=== PATIENT | female | born 1995 | race Two or more races ===

== ENCOUNTER 2025-06-01 08:51 | Observation (INO) | payer BC, OTHER ==
--- NOTE | 2025-06-01 09:47 | DVH ---
BIOPHYSICAL PROFILE HISTORY: GDMA1 TECHNIQUE: Multiple transabdominal real-time grayscale sonographic images through the gravid uterus of the fetus with duplex Doppler color flow and M-mode spectral analysis FINDINGS: BIOPHYSICAL PROFILE: breathing score: 2 movement score: 2 tone score: 2 Quantitative MARGARET score: 2 (MARGARET: 17.7 Cm.) Total score: 8 The cervix not well visualized. Single live fetus in cephalic presentation. heart rate 115 beats per minute. Anterior placenta without previa or abruption IMPRESSION: Biophysical profile score: 8 heart rate ranges from 111 to 123 beats per minute
[2025-06-01] MEDS ORDERED: PREN-96 PO (10:05)
--- NOTE | 2025-06-02 12:41 | DVHDS2 ---
Physician Discharge Progress N Final Diagnosis: gdm 32wks Operations or Procedures: Operations or Procedures nst reactive reviwed,sono Condition on Discharge: Good Disposition: Home Discharge Instructions: Diet: Consistent carbohydrate Activity: No Restrictions, As Tolerated Medications: na Follow Up Care: Specialist: 1w Discharge Statement: "Patient was advised to return to the ER or call 911 if any headaches, dizziness, shortness of breath, chest pain, abdominal pain, bleeding, fevers, or worsening of medical condition. Patient was counseled about treatment plan, medications, possible side effects, patientverbalized understanding. All questions were answered to the best of my ability. This discharge took greater then 30 minutes in planning, reviewing documentation, counseling the patient, and discussing with other team members." Visit Coding OBGYN Date of Service: Jun 01, 2025 Billing Provider: EKTA DÍAZ DO LOG CHIPPER OPERATOR Common Visit Codes: [id number] OBS CARE (HIGH) LOG CHIPPER OPERATOR Procedure Codes: 15378-28- NON-STRESS TEST EKTA DÍAZ DO Jun 02, 2025 12:41
== END 2025-06-01 10:31 | disposition home or self-care (01) ==
LOC: LDRP 08:51
PROVIDERS: ADMIT Obstetrics & Gynecology; ATTEND Obstetrics & Gynecology
DX: O24.419 Gestational diabetes mellitus in pregnancy, unspecified control (principal); Z3A.32 32 weeks gestation of pregnancy; Z79.899 Other long term (current) drug therapy
CPT/HCPCS: 76818; 81002; 82948; 82962; 94760; G0378; 59025; 76819

== ENCOUNTER 2025-06-08 06:32 | Observation (INO) | payer BC ==
[~2025-06-08] VITALS: Ht 154.9 cm; Wt 69.9 kg
[~2025-06-08 06:32] MED LIST: PREN-96 PO
--- NOTE | 2025-06-08 10:59 | DVH ---
BIOPHYSICAL PROFILE HISTORY: gdma1 TECHNIQUE: Multiple transabdominal real-time grayscale sonographic images through the gravid uterus of the fetus with duplex Doppler color flow and M-mode spectral analysis FINDINGS: BIOPHYSICAL PROFILE: breathing score: 2 movement score: 2 tone score: 2 Quantitative MARGARET score: 2 (MARGARET: 19.2 Cm.) Total score: 8/8 The cervix 3.21 cm and appears closed Single live fetus in cephalic presentation. heart rate 123 beats per minute. Anterior Grade 2 placenta without previa or abruption Single live fetus [id number] Biophysical profile score 8/8 corresponding to an KARTHIKEYAN of 07/21/2025. No other measurements were given IMPRESSION: 1. Biophysical profile score: 8/8. 2. FHR: 123 bpm
--- NOTE | 2025-06-09 14:44 | DVHDS2 ---
Physician Discharge Progress N Final Diagnosis: gdm 33wks Operations or Procedures: Operations or Procedures nst reactive reviwed,sono Condition on Discharge: Good Disposition: Home Discharge Instructions: Diet: Consistent carbohydrate Activity: No Restrictions, As Tolerated Medications: na Follow Up Care: Specialist: 3d Discharge Statement: "Patient was advised to return to the ER or call 911 if any headaches, dizziness, shortness of breath, chest pain, abdominal pain, bleeding, fevers, or worsening of medical condition. Patient was counseled about treatment plan, medications, possible side effects, patientverbalized understanding. All questions were answered to the best of my ability. This discharge took greater then 30 minutes in planning, reviewing documentation, counseling the patient, and discussing with other team members." Visit Coding OBGYN Date of Service: Jun 07, 2025 Billing Provider: EKTA DÍAZ DO DIALYSIS RN Common Visit Codes: [id number] OBS CARE (HIGH) DIALYSIS RN Procedure Codes: 82075-01- NON-STRESS TEST EKTA DÍAZ DO Jun 09, 2025 14:44
== END 2025-06-08 10:44 | disposition home or self-care (01) ==
LOC: UNDOADMOB 08:59 → LDRP 08:59
PROVIDERS: ADMIT Obstetrics & Gynecology; ATTEND Obstetrics & Gynecology
DX: O24.419 Gestational diabetes mellitus in pregnancy, unspecified control (principal); Z3A.33 33 weeks gestation of pregnancy; Z79.899 Other long term (current) drug therapy; Z98.890 Other specified postprocedural states
CPT/HCPCS: 76818; 81002; 82948; 82962; 94760; G0378; 59025; 76819

== ENCOUNTER 2025-06-13 05:50 | Observation (INO) | payer BC ==
--- NOTE | 2025-06-13 11:29 | DVH ---
BIOPHYSICAL PROFILE HISTORY: GDMA1 Comparison Study: US BIOPHYSICAL PROFILE on DOS: 06/08/25, US BIOPHYSICAL PROFILE on DOS: 06/01/25 TECHNIQUE: Multiple real-time grayscale sonographic images through the gravid uterus of the fetus wi th duplex Doppler color flow and M-mode spectral analysis FINDINGS: BIOPHYSICAL PROFILE: breathing score: 2 movement score: 2 tone score: 2 Quantitative MARGARET score: 2 (MARGARET: 20.4 Cm, MVP 6.0 cm.) Total score: 8 The cervix is not visualized Single live fetus in cephalic presentation. heart rate 137 beats per minute. Anterior grade 2 placenta without previa or abruption IMPRESSION: Biophysical profile score: 8
--- NOTE | 2025-06-13 11:33 | DVHDS2 ---
Physician Discharge Progress N Final Diagnosis: testing for GDM, A1 Operations or Procedures: Operations or Procedures 29yo IUP@34.4wks VSS per RN NST reactive per RN BPP 8/8 per RN FKC/PTL/preE precautions reviewed Dr. Lui consulted, agrees with POC. Condition on Discharge: Stable Disposition: Home Discharge Instructions: Diet: Consistent carbohydrate Activity: No Restrictions, As Tolerated Medications: see med list Follow Up Care: Specialist: f/u in 1 wk Discharge Statement: "Patient was advised to return to the ER or call 911 if any headaches, dizziness, shortness of breath, chest pain, abdominal pain, bleeding, fevers, or worsening of medical condition. Patient was counseled about treatment plan, medications, possible side effects, patientverbalized understanding. All questions were answered to the best of my ability. This discharge took greater then 30 minutes in planning, reviewing documentation, counseling the patient, and discussing with other team members." Visit Coding OBGYN Date of Service: Jun 13, 2025 Billing Provider: DYLON HALEY CNM PAPER TWISTER TENDER Common Visit Codes: [id number]-[id number] OBS CARE (HIGH) PAPER TWISTER TENDER Procedure Codes: 49537-60- NON-STRESS TEST DYLON HALEY CNM Jun 13, 2025 11:33
== END 2025-06-13 11:37 | disposition home or self-care (01) ==
LOC: LDRP 09:51 → UNDOADMOB 09:51 → LDRP 10:02
PROVIDERS: ADMIT Obstetrics & Gynecology; ATTEND Obstetrics & Gynecology
DX: O24.419 Gestational diabetes mellitus in pregnancy, unspecified control (principal); Z3A.34 34 weeks gestation of pregnancy; Z79.899 Other long term (current) drug therapy; Z98.890 Other specified postprocedural states
CPT/HCPCS: 76818; 81002; 82948; 82962; 94760; G0378; 59025; 76819

== ENCOUNTER 2025-06-20 06:37 | Observation (INO) | payer BC ==
--- NOTE | 2025-06-20 10:41 | DVH ---
BIOPHYSICAL PROFILE HISTORY: GDMA1 TECHNIQUE: Multiple transabdominal real-time grayscale sonographic images through the gravid uterus of the fetus with duplex Doppler color flow and M-mode spectral analysis FINDINGS: BIOPHYSICAL PROFILE: breathing score: 2 movement score: 2 tone score: 2 Quantitative MARGARET score: 2 (MARGARET: 16.8 Cm.) Total score: 8 The cervix not well visualized. Single live fetus in breech presentation. heart rate 164 beats per minute. Grade 2 anterior placenta without previa or abruption IMPRESSION: Biophysical profile score: 8
--- NOTE | 2025-06-21 15:58 | DVHDS2 ---
Physician Discharge Progress N Final Diagnosis: gdm 35wks Operations or Procedures: Operations or Procedures nst reactive reviwed,sono Condition on Discharge: Good Disposition: Home Discharge Instructions: Diet: See Comment Diet comment: GDMA1 diet Activity: No Restrictions, As Tolerated Medications: na Follow Up Care: Specialist: 2d Discharge Statement: "Patient was advised to return to the ER or call 911 if any headaches, dizziness, shortness of breath, chest pain, abdominal pain, bleeding, fevers, or worsening of medical condition. Patient was counseled about treatment plan, medications, possible side effects, patientverbalized understanding. All questions were answered to the best of my ability. This discharge took greater then 30 minutes in planning, reviewing documentation, counseling the patient, and discussing with other team members." Visit Coding OBGYN Date of Service: Jun 21, 2025 Billing Provider: EKTA DÍAZ DO FLOOR SPACE ALLOCATOR Common Visit Codes: [id number] OBS CARE (HIGH) EKTA DÍAZ DO Jun 21, 2025 15:58
== END 2025-06-20 11:33 | disposition home or self-care (01) ==
LOC: LDRP 09:58
PROVIDERS: ADMIT Obstetrics & Gynecology; ATTEND Obstetrics & Gynecology
DX: O24.419 Gestational diabetes mellitus in pregnancy, unspecified control (principal); Z3A.35 35 weeks gestation of pregnancy; Z98.890 Other specified postprocedural states; Z79.899 Other long term (current) drug therapy
CPT/HCPCS: 76818; 81002; 82948; 82962; 94760; G0378; 59025; 76819

== ENCOUNTER 2025-06-27 06:02 | Observation (INO) | payer BC ==
--- NOTE | 2025-06-27 11:09 | DVH ---
BIOPHYSICAL PROFILE HISTORY: GDMA1 TECHNIQUE: Multiple transabdominal real-time grayscale sonographic images through the gravid uterus of the fetus with duplex Doppler color flow and M-mode spectral analysis FINDINGS: BIOPHYSICAL PROFILE: breathing score: 2 movement score: 2 tone score: 2 Quantitative MARGARET score: 2 (MARGARET: 25.8 Cm.) Total score: 8 The cervix not well visualized. Single live fetus in cephalic presentation. heart rate 148 beats per minute. Grade 2 anterior placenta without previa or abruption IMPRESSION: Biophysical profile score: 8 MARGARET: 25.8 cm
--- NOTE | 2025-06-27 11:18 | DVHDS2 ---
Physician Discharge Progress N Final Diagnosis: testing for GDM, A1 and polyhydramnios Operations or Procedures: Operations or Procedures 29yo IUP@36.4wks VSS per RN NST reactive per RN FKC/PTL/preE Precautions reviewed Dr. Lui consulted, agrees with POC. Other Interventions Other Interventions [place] [address] Ph: [phone] DIAGNOSTIC IMAGING Diagnostic Imaging Report : [id number] Signed PATIENT: NNAMDI MCGEE ACCT: [id number] UNIT: [id number] : 1995 LOC: [facility] ROOM / BED: [facility] / A AGE / SEX: 29 / F ADM STATUS: ADM IN SERVICE 6 ORDERING PHYSICIAN: DYLON HALEY CNM PROCEDURE(s): BPP - BIOPHYSICAL PROFILE REASON: GDMA1 ORDER NUMBER(s): [id number], ACCESSION NUMBER(s): [id number] BIOPHYSICAL PROFILE HISTORY: GDMA1 TECHNIQUE: Multiple transabdominal real-time grayscale sonographic images through the gravid uterus of the fetus with duplex Doppler color flow and M-mode spectral analysis FINDINGS: BIOPHYSICAL PROFILE: breathing score: 2 movement score: 2 tone score: 2 Quantitative MARGARET score: 2 (MARGARET: 25.8 Cm.) Total score: 8 The cervix not well visualized. Single live fetus in cephalic presentation. heart rate 148 beats per minute. Grade 2 anterior placenta without previa or abruption IMPRESSION: Biophysical profile score: 8 MARGARET: 25.8 cm ATED BY: SINDY HUGHES MD DICTATED DATE/TIME: 06/27/251105 SIGNED BY: SINDY HUGHES MD SIGNED DATE/TIME: 06/27/251105 CC: Condition on Discharge: Stable Disposition: Home Discharge Instructions: Diet: Consistent carbohydrate Activity: No Restrictions, As Tolerated Medications: see med list Follow Up Care: Specialist: f/u in 3 days Discharge Statement: "Patient was advised to return to the ER or call 911 if any headaches, dizziness, shortness of breath, chest pain, abdominal pain, bleeding, fevers, or worsening of medical condition. Patient was counseled about treatment plan, medications, possible side effects, patientverbalized understanding. All questions were answered to the best of my ability. This discharge took greater then 30 minutes in planning, reviewing documentation, counseling the patient, and discussing with other team members." Visit Coding OBGYN Date of Service: Jun 27, 2025 Billing Provider: DYLON HALEY CNM SMART ENERGY SPECIALIST Common Visit Codes: [id number] OBS CARE (HIGH) SMART ENERGY SPECIALIST Procedure Codes: 15341-97- NON-STRESS TEST DYLON HALEY CNM Jun 27, 2025 11:18
== END 2025-06-27 11:31 | disposition home or self-care (01) ==
LOC: LDRP 09:52
PROVIDERS: ADMIT Obstetrics & Gynecology; ATTEND Obstetrics & Gynecology
DX: O40.3XX0 Polyhydramnios, third trimester, not applicable or unspecified (principal); O24.419 Gestational diabetes mellitus in pregnancy, unspecified control; Z3A.36 36 weeks gestation of pregnancy; Z79.899 Other long term (current) drug therapy
CPT/HCPCS: 76818; 81002; 82948; 82962; 94760; G0378; 76819

== ENCOUNTER 2025-06-30 09:00 | Observation (INO) | payer BC ==
--- NOTE | 2025-06-30 09:17 | DVHDS2 ---
Physician Discharge Progress N Final Diagnosis: gdm 37wks Operations or Procedures: Operations or Procedures nst reactive reviwed,sono Condition on Discharge: Good Disposition: Home Discharge Instructions: Diet: Consistent carbohydrate Activity: No Restrictions, As Tolerated Medications: na Follow Up Care: Specialist: 3d Discharge Statement: "Patient was advised to return to the ER or call 911 if any headaches, dizziness, shortness of breath, chest pain, abdominal pain, bleeding, fevers, or worsening of medical condition. Patient was counseled about treatment plan, medications, possible side effects, patientverbalized understanding. All questions were answered to the best of my ability. This discharge took greater then 30 minutes in planning, reviewing documentation, counseling the patient, and discussing with other team members." Visit Coding OBGYN Date of Service: Jun 30, 2025 Billing Provider: EKTA DÍAZ DO TWISTING FRAME OPERATOR Common Visit Codes: 05523-[id number] INP/OBS CARE (HIGH) TWISTING FRAME OPERATOR Procedure Codes: 40751-31- NON-STRESS TEST EKTA DÍAZ DO Jun 30, 2025 09:17
--- NOTE | 2025-06-30 10:17 | DVH ---
BIOPHYSICAL PROFILE HISTORY: GDMA1/Poly TECHNIQUE: Multiple transabdominal real-time grayscale sonographic images through the gravid uterus of the fetus with duplex Doppler color flow and M-mode spectral analysis FINDINGS: BIOPHYSICAL PROFILE: breathing score: 2 movement score: 2 tone score: 2 Quantitative MARGARET score: 2 (MARGARET: 21.4 Cm.) Total score: 8 The cervix not well visualized. Single live fetus in cephalic presentation. heart rate 138 beats per minute. Grade 2 anterior placenta without previa or abruption IMPRESSION: Biophysical profile score: 8
== END 2025-06-30 10:24 | disposition home or self-care (01) ==
LOC: LDRP 09:00
PROVIDERS: ADMIT Obstetrics & Gynecology; ATTEND Obstetrics & Gynecology
DX: O24.419 Gestational diabetes mellitus in pregnancy, unspecified control (principal); Z3A.37 37 weeks gestation of pregnancy; Z98.890 Other specified postprocedural states; Z79.899 Other long term (current) drug therapy
CPT/HCPCS: 59025; 76819; 81002; 82948; 82962; 94760; G0378; 76818

== ENCOUNTER 2025-07-04 05:54 | Observation (INO) | payer BC ==
--- NOTE | 2025-07-04 10:49 | DVH ---
BIOPHYSICAL PROFILE HISTORY: GDMA1 POLY Comparison Study: US BIOPHYSICAL PROFILE on DOS: 06/30/25, US BIOPHYSICAL PROFILE on DOS: 06/27/25, US BIOPHYSICAL PROFILE on DOS: 06/20/25, US BIOPHYSICAL PROFILE on DOS: 06/13/25, US BIOPHYSICAL PROFILE on DOS: 06/08/25 TECHNIQUE: Multiple real-time grayscale sonographic images through the gravid uterus of the fetus with duplex Doppler color flow and M-mode spectral analysis FINDINGS: BIOPHYSICAL PROFILE: breathing score: 2 movement score: 2 tone score: 2 Quantitative MARGARET score: 2 (MARGARET: 16.32 Cm.) Total score: 8 The cervix is not visualized Single live fetus in cephalic presentation. heart rate 148 beats per minute. Grade 2, anterior placenta without previa or abruption IMPRESSION: Biophysical profile score: 8
--- NOTE | 2025-07-04 11:31 | DVHDS2 ---
Physician Discharge Progress N Final Diagnosis: testing for GDM, A1 Operations or Procedures: Operations or Procedures 29yo IUP@37.4wks VSS per RN NST reactive per RN FKC/preE/Labor precautions reviewed Condition on Discharge: Stable Disposition: Home Discharge Instructions: Diet: Regular Activity: No Restrictions, As Tolerated Medications: see med list Follow Up Care: Specialist: f/u in 1wk Discharge Statement: "Patient was advised to return to the ER or call 911 if any headaches, di zziness, shortness of breath, chest pain, abdominal pain, bleeding, fevers, or worsening of medical condition. Patient was counseled about treatment plan, medications, possible side effects, patientverbalized understanding. All questions were answered to the best of my ability. This discharge took greater then 30 minutes in planning, reviewing documentation, counseling the patient, and discussing with other team members." Visit Coding OBGYN Date of Service: Jul 04, 2025 Billing Provider: DYLON HALEY CNM BLOCK INSPECTOR Common Visit Codes: [id number] OBS CARE (HIGH) BLOCK INSPECTOR Procedure Codes: 42414-41- NON-STRESS TEST DYLON HALEY CNM Jul 04, 2025 11:31
== END 2025-07-04 11:23 | disposition home or self-care (01) ==
LOC: LDRP 09:53 → UNDOADMOB 09:53 → LDRP 10:10 → UNDODISOB 11:23
PROVIDERS: ADMIT Obstetrics & Gynecology; ATTEND Obstetrics & Gynecology
DX: O24.419 Gestational diabetes mellitus in pregnancy, unspecified control (principal); O42.913 Preterm premature rupture of membranes, unspecified as to length of time between rupture and onset of labor, third trimester; Z3A.37 37 weeks gestation of pregnancy; Z98.890 Other specified postprocedural states
CPT/HCPCS: 76818; 81002; 82948; G0378; 59025; 76819

== ENCOUNTER 2025-07-10 00:44 | Observation (INO) | payer BC ==
--- NOTE | 2025-07-10 10:54 | DVH ---
BIOPHYSICAL PROFILE HISTORY: GDMA2 TECHNIQUE: Multiple transabdominal real-time grayscale sonographic images through the gravid uterus of the fetus with duplex Doppler color flow and M-mode spectral analysis FINDINGS: BIOPHYSICAL PROFILE: breathing score: 2 movement score: 2 tone score: 2 Quantitative MARGARET score: 2 (MARGARET: 14.4 Cm.) Total score: 8 The cervix not well visualized. Single live fetus in cephalic presentation. heart rate 129 beats per minute. Grade 2 anterior placenta without previa or abruption IMPRESSION: Biophysical profile score: 8
--- NOTE | 2025-07-11 01:05 | DVHDS2 ---
Physician Discharge Progress N Final Diagnosis: gdm 30wks Operations or Procedures: Operations or Procedures nst reactive reviwed,sono Condition on Discharge: Good Disposition: Home Discharge Instructions: Diet: Consistent carbohydrate Activity: No Restrictions, As Tolerated Medications: na Follow Up Care: Specialist: 2d Discharge Statement: "Patient was advised to return to the ER or call 911 if any headaches, dizziness, shortness of breath, chest pain, abdominal pain, bleeding, fevers, or worsening of medical condition. Patient was counseled about treatment plan, medications, possible side effects, patientverbalized understanding. All questions were answered to the best of my ability. This discharge took greater then 30 minutes in planning, reviewing documentation, counseling the patient, and discussing with other team members." Visit Coding OBGYN Date of Service: Jul 10, 2025 Billing Provider: EKTA DÍAZ DO ENTRY LEVEL BUYER Common Visit Codes: 59914-[id number] OBS CARE (HIGH) ENTRY LEVEL BUYER Procedure Codes: 42212-98- NON-STRESS TEST EKTA DÍAZ DO Jul 11, 2025 01:05
== END 2025-07-10 10:40 | disposition home or self-care (01) ==
LOC: LDRP 09:02
PROVIDERS: ADMIT Obstetrics & Gynecology; ATTEND Obstetrics & Gynecology
DX: O24.419 Gestational diabetes mellitus in pregnancy, unspecified control (principal); Z3A.30 30 weeks gestation of pregnancy; Z98.890 Other specified postprocedural states
CPT/HCPCS: 76818; 81002; 82948; 82962; 94760; G0378; 59025; 76819

== ENCOUNTER 2025-07-18 08:54 | Observation (INO) | payer BC ==
--- NOTE | 2025-07-18 09:58 | DVH ---
BIOPHYSICAL PROFILE HISTORY: GDMA1 TECHNIQUE: Multiple transabdominal real-time grayscale sonographic images through the gravid uterus of the fetus with duplex Doppler color flow and M-mode spectral analysis FINDINGS: BIOPHYSICAL PROFILE: breathing score: 2 movement score: 2 tone score: 2 Quantitative MARGARET score: 2 (MARGARET: 9.8 Cm.) Total score: 8/8 The cervix is not visualized. Single live fetus in cephalic presentation. heart rate 145 beats per minute. Grade 2 anterior placenta without previa or abruption. IMPRESSION: 1. Biophysical profile score: 8/
--- NOTE | 2025-07-18 14:27 | DVHDS2 ---
Physician Discharge Progress N Final Diagnosis: testing for GDM, A1 Operations or Procedures: Operations or Procedures 29yo IUP@39.4wks VSS NST reactive FKC/PTL/PreE precautions reviewed. Dr. Lui consulted, agrees with POC. Other Interventions Other Interventions [address] [address] Ph: [phone] DIAGNOSTIC IMAGING Diagnostic Imaging Report : [id number] Signed PATIENT: NNAMDI MCGEE ACCT: [id number] UNIT: [id number] : 1995 LOC: [facility] ROOM / BED: TRIAGE2 / A AGE / SEX: 29 / F ADM STATUS: ADM IN SERVICE 7 ORDERING PHYSICIAN: DYLON HALEY CNM PROCEDURE(s): BPP - BIOPHYSICAL PROFILE REASON: GDMA1 ORDER NUMBER(s): [id number], ACCESSION NUMBER(s): [id number] BIOPHYSICAL PROFILE HISTORY: GDMA1 TECHNIQUE: Multiple transabdominal real-time grayscale sonographic images through the gravid uterus of the fetus with duplex Doppler color flow and M-mode spectral analysis FINDINGS: BIOPHYSICAL PROFILE: breathing score: 2 movement score: 2 tone score: 2 Quantitative MARGARET score: 2 (MARGARET: 9.8 Cm.) Total score: 8/8 The cervix is not visualized. Single live fetus in cephalic presentation. heart rate 145 beats per minut e. Grade 2 anterior placenta without previa or abruption. IMPRESSION: 1. Biophysical profile score: 8/ ATED BY: NIKHIL WETZEL MD DICTATED DATE/TIME: 07/18/25955 SIGNED BY: NIKHIL WETZEL MD SIGNED DATE/TIME: 07/18/25955 CC: Condition on Discharge: Stable Disposition: Home Discharge Instructions: Diet: Consistent carbohydrate Activity: Light activity Medications: see med list Follow Up Care: Specialist: f/u in 2 days Discharge Statement: "Patient was advised to return to the ER or call 911 if any headaches, dizziness, shortness of breath, chest pain, abdominal pain, bleeding, fevers, or worsening of medical condition. Patient was counseled about treatment plan, medications, possible side effects, patientverbalized understanding. All questions were answered to the best of my ability. This discharge took greater then 30 minutes in planning, reviewing documentation, counseling the patient, and discussing with other team members." Visit Coding OBGYN Date of Service: Jul 18, 2025 Billing Provider: DYLON HALEY CNM COMMUNICATIONS TOWER CLIMBER Common Visit Codes: [id number] OBS CARE (HIGH) COMMUNICATIONS TOWER CLIMBER Procedure Codes: 19994-56- NON-STRESS TEST DYLON HALEY CNM Jul 18, 2025 14:27
== END 2025-07-18 10:46 | disposition home or self-care (01) ==
LOC: LDRP 08:54 → UNDOADMOB 08:54 → LDRP 08:59
PROVIDERS: ADMIT Obstetrics & Gynecology; ATTEND Obstetrics & Gynecology
DX: O24.419 Gestational diabetes mellitus in pregnancy, unspecified control (principal); Z3A.39 39 weeks gestation of pregnancy; Z98.890 Other specified postprocedural states
CPT/HCPCS: 76818; 81002; 82948; 82962; 94760; A4649; G0378; 76819

== ENCOUNTER 2025-07-21 06:27 | Observation (INO) | payer BC ==
--- NOTE | 2025-07-21 15:35 | DVH ---
CLINICAL HISTORY: Gestational diabetes. COMPARISON: US BIOPHYSICAL PROFILE on DOS: 07/18/25, US BIOPHYSICAL PROFILE on DOS: 07/10/25, US BIOPHYSICAL PROFILE on DOS: 07/04/25 TECHNIQUE: biophysical profile was performed. Transabdominal sonographic images of the fetus were obtained. FINDINGS: The fetus is in cephalic position. heart rate measures 156 BPM. Amniotic fluid index measures 18.5 cm. The placenta is anterior in position without visualized evidence of previa or abruption. BPP profile is an overall score of 8/8, with 2/2 points for breathing, with at least one episode of breathing over a 30 second duration during a 30 minute observation, 2/2 points for movements, with 3 or more discrete body or limb movements, 2/2 points for tone, with one or more episodes of extremity extension with return to flexion, or opening and closing of hand, and 2/2 points for amniotic fluid, with at least 1 pocket of amniotic fluid that measures 2 cm in 2 perpendicular planes. IMPRESSION: BPP score of 8/8.
--- NOTE | 2025-07-21 17:46 | DVHDS2 ---
Physician Discharge Progress N Final Diagnosis: GDM Operations or Procedures: Operations or Procedures Encounter for surveillance Commentary: Commentary PATIENT: NNAMDI MCGEE ACCT: [id number] UNIT: [id number] : 1995 LOC: [facility] ROOM / BED: TRIAGE2 / A AGE / SEX: 29 / F ADM STATUS: ADM IN SERVICE 1412 ORDERING PHYSICIAN: MARCO A PALMER DO PROCEDURE(s): BPP - BIOPHYSICAL PROFILE REASON: GDMA1 ORDER NUMBER(s): [id number], ACCESSION NUMBER(s): [id number] CLINICAL HISTORY: Gestational diabetes. COMPARISON: US BIOPHYSICAL PROFILE on DOS: 07/18/25, US BIOPHYSICAL PROFILE on DOS: 07/10/25, US BIOPHYSICAL PROFILE on DOS: 07/04/25 TECHNIQUE: biophysical profile was performed. Transabdominal sonographic images of the fetus were obtained. FINDINGS: The fetus is in cephalic position. heart rate measures 156 BPM. Amniotic fluid index measures 18.5 cm. The placenta is anterior in position without visualized evidence of previa or abruption. BPP profile is an overall score of 8/8, with 2/2 points for breathing, with at least one episode of breathing over a 30 second duration during a 30 minute observation, 2/2 points for movements, with 3 or more discrete body or limb movements, 2/2 points for tone, with one or more episodes of extremity extension with return to flexion, or opening and closing of hand, and 2/2 points for amniotic fluid, with at least 1 pocket of amniotic fluid that measures 2 cm in 2 perpendicular planes. IMPRESSION: BPP score of 8/8. ATED BY: RENETTA CARDONA DO DICTATED DATE/TIME: 07/21/25 1533 Condition on Discharge: Stable Disposition: Home Discharge Instructions: Diet: Consistent carbohydrate Activity: No Restrictions, As Tolerated Follow Up/Referral: as scheduled Medications: NA Follow Up Care: Discharge Statement: "Patient was advised to return to the ER or call 911 if any headaches, d izziness, shortness of breath, chest pain, abdominal pain, bleeding, fevers, or worsening of medical condition. Patient was counseled about treatment plan, medications, possible side effects, patientverbalized understanding. All questions were answered to the best of my ability. This discharge took greater then 30 minutes in planning, reviewing documentation, counseling the patient, and discussing with other team members." Visit Coding OBGYN Date of Service: Jul 21, 2025 Billing Provider: MARCO A PALMER DO JUNK DEALER Common Visit Codes: [id number] INP/OBS CARE(HIGH) MARCO A PALMER DO Jul 21, 2025 17:46
== END 2025-07-21 15:25 | disposition home or self-care (01) ==
LOC: LDRP 13:58
PROVIDERS: ADMIT Obstetrics & Gynecology; ATTEND Obstetrics & Gynecology
DX: O24.419 Gestational diabetes mellitus in pregnancy, unspecified control (principal); Z3A.40 40 weeks gestation of pregnancy; Z98.890 Other specified postprocedural states
CPT/HCPCS: 76818; 81002; 82948; 82962; 94760; A4649; G0378; 59025; 76819

== ENCOUNTER 2025-07-22 03:14 | Inpatient (IN) | payer BC ==
[~2025-07-22] VITALS: Ht 170.2 cm; Wt 84.8 kg
[2025-07-22] MEDS ORDERED: LIDOCAINE 2%HCL (LOCAL ANESTH.) INJ 20ML MDV IJ PRN (07:15)
[2025-07-22] MEDS ORDERED: BUTORPHANOL TARTRATE 2 MG/1 ML VIAL IV PRN ×2 (07:15)
[2025-07-22 07:49] LABS: Hematocrit 37.6 % (36.0-46.0); Hemoglobin 12.6 g/dL (12.2-16.2); Mean Corpuscular Hemoglobin 28.4 pg (28.0-32.0); Mean Corpuscular Volume 84.6 fL (80.0-100.0); Nucleated Red Blood Cells % 0.1 %
[2025-07-22 08:01] LABS: INR 0.91 (0.9-1.15); Partial Thromboplastin Time 29.1 SEC (24.5-34.5); Prothrombin Time 9.7 sec (9.3-11.8)
[2025-07-22 08:27] LABS: Urine Protein, UAD 1+ (Negative)
[2025-07-22 08:48] LABS: Amphetamine Screen, Urine Neg (NEGATIVE); Barbiturate Scree,Urine Neg (NEGATIVE); Benzodiazephine Screen, Urine Neg (NEGATIVE); Cannabinoid Screen, Urine Neg (NEGATIVE); Cocaine Screen, Urine Neg (NEGATIVE); Opiate Scree,Urine Neg (NEGATIVE); Phencyclidine Screen, Urine Neg (NEGATIVE)
[2025-07-22 08:51] LABS: Alanine Aminotransferase 15 U/L (7-40); Albumin 3.8 g/dL (3.2-4.8); Anion Gap 12 (5-15); BUN/Creatinine Ratio 17.4 (10.0-20.0); Carbon Dioxide 24 mmol/L (20-31); Chloride 103 mmol/L (98-107); Sodium 139 mmol/L (136-145); Total Protein 6.8 g/dL (5.7-8.2)
[2025-07-22 08:52] LABS: Alkaline Phosphatase 187 U/L (46-116); Bilirubin, Total 0.4 mg/dL (0.2-1.0); Blood Urea Nitrogen 8 mg/dL (9-23); Calcium 8.6 mg/dL (8.7-10.4); Glucose 74 mg/dL (74-106); Potassium 3.5 mmol/L (3.5-5.1)
--- NOTE | 2025-07-22 09:42 | DVHHP2 ---
OB CC & HPI Date Date of Admission: Jul 22, 2025 Patient Identification: : 2 Para: 1 EDC: Jul 21, 2025 EGA: 40.1 Chief Complaints: Reason for admission: induction of labor Indication for : other (GDMA1) History of Present Complaints Term IUP 40.1 wk Scheduled IOL per Dr Lui for GDMA1 otherwise uncomplicated Past Medical History Cardiac: No pertinent Hx Pulmonary: No pertinent Hx Central Nervous System: No pertinent Hx GI: No pertinent Hx Hemotology/Oncology: No pertinent Hx Hepatobiliary: No pertinent Hx Psychiatric: No pertinent Hx Musculoskeletal: No pertinent Hx Rheumotologic: No pertinent Hx Infectious Disease: No peritnent Hx ENT: No pertinent Hx Renal/: No pertinent Hx Endocrine: No pertinent Hx Dermatology: No pertinent Hx Past Surgical History: No pertinent Hx OB History OB History Care: Good Care Ultrasounds: Normal mid trimester US Obstetrical Complications: Gestational Diabetes Medical Complications: None Allergies: Coded Allergies: NO KNOWN ALLERGIES (Unverified , 06/08/25) Home Meds Reported Medications Vit W/ Ferrous Fumara ( One Daily) Daily Tab, 1 TAB PO DAILY, #90 TAB 3 Refills 06/01/25 Current Medications Current Medications Medications (Trade) Dose Ordered Sig/Damon Route PRN Reason Start Time Stop Time Status Last Admin Lactated Ringer's 1,000 ml @ 125 mls/hr Q8H IV 07/22/25 07:15 Wilder Silvia (Tucks) 1 pad PRN PRN TOP PERINEAL AREA DISCOMFORT 07/22/25 07:15 Sodium Lauryl Sulfate (Phisoderm) 240 ml PRN PRN TOP PERINEAL AREA DISCOMFORT 07/22/25 07:15 Benzocaine (Dermoplast) 1 applic PRN PRN TOP PERINEAL AREA DISCOMFORT 07/22/25 07:15 Butorphanol Tartrate (Stadol Injection) 1 mg Q4HPRN PRN IV MODERATE PAIN (4-6 PAIN SCALE) 07/22/25 07:15 Butorphanol Tartrate (Stadol Injection) 2 mg Q4HPRN PRN IV SEVERE PAIN (7-10 PAIN SCALE) 07/22/25 07:15 Lidocaine HCl (Xylocaine) 20 ml ONCE PRN IJ PERINEAL AREA DISCOMFORT 07/22/25 07:15 Misoprostol (Cytotec) 50 mcg Q4HPRN PRN PO CERVICAL RIPENING 07/22/25 08:45 07/22/25 08:54 Family & Social History Family/Social History Blood Type: O+ Rubella: immune RPR/VDRL: Negative GBS Status: Negative HBsAG: Negative Review of Systems Constitutional: No symptom reported Ears, Nose, & Throat: No symptom reported Eyes: No symptom reported Pulmonary/Respiratory: No symptom reported Cardiovascular: No symptom reported Gastrointestinal: No symptom reported Genitourinary: No symptom reported Musculoskeletal: No symptom reported Skin: No symptom reported Psychiatric: No symptom reported Endocrine: No symptom reported Hemotologic/Lymphatic: No symptom reported OB Admission Exam Physical Exam HEENT: NCAT Heart: Rhythm Normal Lungs: Clear Abdomen: Gravid Extremities: Normal Reflexes: Normal Cervical Dilatation: 2cm Effacement: 50% Station: -3 Membranes: Intact Heart Rate: 130's Accelerations: Accelerations Present Decelerations: No Decelerations Short Term Variability: Present Review Coordinator Variability: Average (6-25) Contractions on Admission: >10 Minutes Apart Intensity: Mild OB Plan Plan Admitting Diagnosis: GDMA1, IUP 40.1 wk Medically indicated Induction of Labor Plan: Induction Induction Methd: Misoprostol protocol Other Plan: Consent obtained for IOL R/B/A discussed Visit Coding OBGYN Date of Service: Jul 22, 2025 Billing Provider: MARCO A PALMER DO LOOKBACK COORDINATOR Common Visit Codes: [id number] INP/OBS CARE (HIGH) MARCO A PALMER DO Jul 22, 2025 09:42
[2025-07-22] MEDS: LACTATED RINGER'S 1,000 ML IV SCH (13:09)
[2025-07-22] MEDS ORDERED: TERBUTALINE SULFATE 1 MG/ML 1ML VIAL SC PRN (16:30)
[2025-07-22] MEDS ORDERED: LACT. RINGERS/OXYTOCIN 20UNITS 1,000 ML IV SCH (16:30)
[2025-07-22] MEDS: PHISODERM TOP SOLN 240ML BTL TOP PRN (16:43)
[2025-07-22] MEDS: WITCH HAZEL-GLYCERIN PAD TOP PRN (16:43)
[2025-07-22] MEDS: DERMOPLAST 60ML BOTTLE TOP PRN (16:43)
[2025-07-22] MEDS: LACTATED RINGER'S 1,000 ML IV ONE (16:44)
[2025-07-22] MEDS ORDERED: NALOXONE HCL 0.4 MG/ML VIAL IV ONE ×2 (16:45→18:00)
[2025-07-22] MEDS: LIDOCAINE HCL 2 %PF INJ 10ML AMP IJ ONE (17:41)
[2025-07-22] MEDS: fentaNYL CITRATE 100 MCG/2 ML VL IV ONE (17:41)
[2025-07-22] MEDS: ROPIVACAINE HCL 100 ML ONE (17:42)
--- NOTE | 2025-07-22 17:43 | EPIDURAL ---
Anesthesia Procedural Note - Epidural Date: Jul 22, 2025 Informed consent obtained?: Yes Medication Administered: Fentanyl 100 mcg 2% Lidocaine Administered: 5 Medication Administered: ePHEDrine 5 mg IV Sterile prept drape: Yes Spinal level of insertion: L2-L3 Test dose of lidocaine & Epine: Negative Infusion started: Yes Start time: 17:10 End time: 17:45 CHULA CLARKE MD Jul 22, 2025 17:43
[2025-07-22] MEDS ORDERED: fentaNYL 400mCg/200ml W ROPIVA 200 ML EPI SCH (18:00)
--- NOTE | 2025-07-22 18:49 | DVHPN2 ---
OB Labor Progress Note Date and Time Seen Date Seen: Jul 22, 2025 Time Seen: 18:47 Subjective Patient reports: No new complaints, Feels better Objective Vital Signs Afeb VS stable Monitoring Method Monitoring Method: External Heart Rate Heart Rate Baseline: 140 Heart Rate Variability: Moderate Presence of FHR Accelerations: Yes Presence of FHR Decelerations: No Contractions Contractions Intensity: Strong Contractions Resting Tone: Relaxed Membranes Membranes: Ruptured Amniotic Fluid Color: Clear Vaginal Exam Vaginal Exam Dilation: 6 Vaginal Exam Effacement: 80 Vaginal Exam Station: -2 Vaginal Exam Presentation: VTX Vaginal Exam Show: Small Medications Medications - Pitocin: No Medication - Epidural: Yes Lab Results Lab Results Vital Signs Date Time Temp Pulse Resp B/P (MAP) Pulse Ox O2 Delivery O2 Flow Rate FiO2 07/22/25 17:41 132/74 Current Medications Medications (Trade) Dose Ordered Sig/Damon Start Time Stop Time Status Last Admin Dose Admin Lactated Ringer's 1,000 ml @ 125 mls/hr Q8H 07/22/25 07:15 07/22/25 18:25 125 MLS/HR Witch Silvia (Tucks) 1 pad PRN PRN 07/22/25 07:15 07/22/25 16:43 1 PAD Sodium Lauryl Sulfate (Phisoderm) 240 ml PRN PRN 07/22/25 07:15 07/22/25 16:43 240 ML Benzocaine (Dermoplast) 1 applic PRN PRN 07/22/25 07:15 07/22/25 16:43 1 APPLIC Butorphanol Tartrate (Stadol Injection) 1 mg Q4HPRN PRN 07/22/25 07:15 Butorphanol Tartrate (Stadol Injection) 2 mg Q4HPRN PRN 07/22/25 07:15 Lidocaine HCl (Xylocaine) 20 ml ONCE PRN 07/22/25 07:15 Misoprostol (Cytotec) 50 mcg Q4HPRN PRN 07/22/25 08:45 07/22/25 12:54 50 MCG Oxytocin 1,000 ml @ 6 ml/hr Q24H 07/22/25 16:30 Terbutaline Sulfate (Brethine Inj) 0.25 mg ONCE PRN 07/22/25 16:30 Oxytocin 500 ml @ 999 mls/hr Q31M ONCE 07/22/25 16:30 07/22/25 17:00 DC Oxytocin 500 ml @ 125 mls/hr Q4H ONCE 07/22/25 17:00 07/22/25 20:59 Naloxone HCl (Narcan) 0.2 mg PRN ONCE 07/22/25 16:45 07/22/25 16:46 DC Ephedrine Sulfate (ePHEDrine SULFATE) 10 mg PRN ONCE 07/22/25 16:45 07/22/25 16:46 DC Fentanyl Citrate 100 mcg ONCE ONCE 07/22/25 16:45 07/22/25 16:46 DC 07/22/25 17:41 100 MCG Lidocaine HCl (Xylocaine-Pf 2% Injection) 10 ml ONCE ONCE 07/22/25 16:45 07/22/25 16:46 DC 07/22/25 17:41 10 ML Lactated Ringer's 1,000 ml @ 1,000 mls/hr Q1H ONCE 07/22/25 16:45 07/22/25 17:44 DC 07/22/25 16:44 1,000 MLS/HR Naloxone HCl (Narcan) 0.2 mg PRN ONCE 07/22/25 18:00 07/22/25 18:02 DC Ephedrine Sulfate (ePHEDrine SULFATE) 10 mg PRN ONCE 07/22/25 18:00 07/22/25 18:02 DC Fentanyl/ Ropivacaine 200 ml @ 10 mls/hr UD 07/22/25 18:00 07/24/25 17:59 Laboratory Tests Test 07/22/25 12:00 07/22/25 07:25 07/22/25 07:10 Range/Units POC Glucose 110 H 70-106 mg/dl White Blood Count 7.4 4.4-10.8 10^3/uL Red Blood Count 4.45 4.0-5.20 10^6/uL Hemoglobin 12.6 12.2-16.2 g/dL Hematocrit 37.6 36.0-46.0 % Mean Corpuscular Volume 84.6 80.0-100.0 fL Mean Corpuscular Hemoglobin 28.4 28.0-32.0 pg Mean Corpuscular Hemoglobin Concent 33.6 32.0-36.0 g/dL Red Cell Distribution Width 15.0 H 11.8-14.3 % Platelet Count 161 140-450 10^3/uL Mean Platelet Volume 9.9 6.9-10.8 fL Neutrophils (%) (Auto) 66.2 37.0-80.0 % Lymphocytes (%) (Auto) 25.8 10.0-50.0 % Monocytes (%) (Auto) 7.1 0.0-12.0 % Eosinophils (%) (Auto) 0.6 0.0-7.0 % Basophils (%) (Auto) 0.3 0.0-2.0 % Neutrophils # (Auto) 4.9 1.6-8.6 10 ^3/uL Lymphocytes # (Auto) 1.9 0.4-5.4 10 ^3/uL Monocytes # (Auto) 0.5 0-1.3 10 ^3/uL Eosinophils # (Auto) 0 0-0.8 10 ^3/uL Basophils # (Auto) 0 0-0.2 10 ^3/uL Nucleated Red Blood Cells 0.1 % Prothrombin Time 9.7 9.3-11.8 sec Prothrombin Time INR 0.91 0.9-1.15 Activated Partial Thromboplast Time 29.1 24.5-34.5 SEC Sodium Level 139 136-145 mmol/L Potassium Level 3.5 3.5-5.1 mmol/L Chloride Level 103 98-107 mmol/L Carbon Dioxide Level 24 20-31 mmol/L Anion Gap 12 5-15 Blood Urea Nitrogen 8 L 9-23 mg/dL Creatinine 0.46 L 0.550-1.02 mg/dL Glomerular Filtration Rate Calc 133 >90 mL/min BUN/Creatinine Ratio 17.4 10.0-20.0 Serum Glucose 74 74-106 mg/dL Calcium Level 8.6 L 8.7-10.4 mg/dL Total Bilirubin 0.4 0.2-1.0 mg/dL Aspartate Amino Transferase (AST) 21 13-40 U/L Alanine Aminotransferase (ALT) 15 7-40 U/L Alkaline Phosphatase 187 H 46-116 U/L Total Protein 6.8 5.7-8.2 g/dL Albumin 3.8 3.2-4.8 g/dL Treponema pallidum Antibody Non-reactive Negative Hepatitis C Antibody Negative Negative Urine Color Dark yellow Yellow Urine Clarity Turbid H Clear Urine pH 6.0 5.0-9.0 Urine Specific [place] 1.028 1.001-1.035 Urine Protein 1+ H Negative Urine Ketones Negative Negative Urine Blood Trace H Negative /uL Urine Nitrite Negative Negative Urine Bilirubin Negative Negative Urine Urobilinogen Normal Negative mg/dL Urine Leukocyte Esterase 3+ Negative /uL Urine RBC 8 0 - 4 /hpf Urine Microscopic WBC 53 H 0-5 /HPF Urine Squamous Epithelial Cells Mod <5 /hpf Urine Bacteria Few H None Seen /hpf Urine Mucus Few None Seen Urine Glucose Normal Normal mg/dL Urine Opiates Screen Neg NEGATIVE Urine Fentanyl Screen Neg NEGATIVE Urine Barbiturates Screen Neg NEGATIVE Urine Phencyclidine Screen Neg NEGATIVE Urine Amphetamines Screen Neg NEGATIVE Urine Benzodiazepines Screen Neg NEGATIVE Urine Cocaine Screen Neg NEGATIVE Urine Cannabinoids Screen Neg NEGATIVE Assessment Assessment Term GDMA1 Categ 1 tracing GBS neg Plan Plan Continue labor mgmt anticipated Plan discussed with: Patient Visit Coding OBGYN Date of Service: Jul 22, 2025 Billing Provider: MARCO A PALMER DO MATERIAL LIAISON Common Visit Codes: [id number] INP/OBS CARE(MOD) MARCO A PALMER DO Jul 22, 2025 18:49
--- NOTE | 2025-07-22 20:52 | LDN2 ---
Labor and Delivery Note Date 07/22/25 Age 29 2 Para 2 EDC 07/21/25 EGA 40+1 Diagnosis GDMA1, Term preg - delivered Vaginal Delivery: VTX Vacuum Assisted: No Placenta: Spontaneous Sex: Female Weight Pending Apgars 8/9 Amniotic Fluid: Clear Anesthesia Epidural Episiotomy: No Repaired with N/A; no lacerations EBL 50 mL Labs Blood Bank 07/22/25 07:25: Blood Type O POSITIVE Complications None Comments/Significant Med Keyshawn uncomplicated, viable female Visit Coding OBGYN Date of Service: Jul 22, 2025 Billing Provider: MARCO A PALMER DO TUBER OPERATOR Common Visit Codes: PROCEDURE ONLY TUBER OPERATOR Procedure Codes: [id number] OB CARE,VAG DELIVERY MARCO A PALMER DO Jul 22, 2025 20:52
[2025-07-22] MEDS ORDERED: ONDANSETRON ODT 4 MG TAB PO PRN (22:30)
[2025-07-22] MEDS ORDERED: ACETAMINOPHEN 325 MG TAB PO PRN (22:30)
[2025-07-22] MEDS: IBUPROFEN 600 MG TAB PO PRN (22:59)
[2025-07-22 23:00] VITALS: BP 126/71; RESP 20; TEMP 98.5
[2025-07-23 02:58] VITALS: BP 119/76; PULSE 85; RESP 18; TEMP 98.3
[2025-07-23] MEDS: LACT. RINGERS/OXYTOCIN 20UNITS 500 ML IV ONE ×2 (04:20→04:21)
[2025-07-23 06:30] VITALS: BP 121/84; PULSE 74; RESP 17; TEMP 98.1; O2SAT 97
[2025-07-23] MEDS: HYDROcodone-ACET 5/325MG TAB PO PRN (07:49)
--- NOTE | 2025-07-23 09:07 | DVHPN2 ---
Progress Note Date Seen: Jul 23, 2025 Subjective PPD#1 s/p , no acute complaints. Lochia mild GDMA1, delivered vital signs Vital Sign Date Time Temp Pulse Resp B/P (MAP) Pulse Ox O2 Delivery O2 Flow Rate FiO2 07/23/25 06:30 98.1 74 17 121/84 (96) 97 98.1 07/23/25 06:30 Room Air Total Intake and Output 07/22/25 07/22/25 07/23/25 15:00 23:00 07:00 Output Total 600 ml 1050 ml Balance -600 ml -1050 ml medications Current Medications Medications Dose Ordered Sig/Damon Route Start Time Stop Time Status Last Admin Dose Admin Wilder Silvia 1 pad PRN PRN TOP 07/22/25 07:15 07/22/25 16:43 1 PAD Sodium Lauryl Sulfate 240 ml PRN PRN TOP 07/22/25 07:15 07/22/25 16:43 240 ML Benzocaine 1 applic PRN PRN TOP 07/22/25 07:15 07/22/25 16:43 1 APPLIC Butorphanol Tartrate 1 mg Q4HPRN PRN IV 07/22/25 07:15 Cancel Butorphanol Tartrate 2 mg Q4HPRN PRN IV 07/22/25 07:15 Cancel Lidocaine HCl 20 ml ONCE PRN IJ 07/22/25 07:15 Cancel Oxytocin 1,000 ml @ 6 ml/hr Q24H IV 07/22/25 16:30 Cancel Terbutaline Sulfate 0.25 mg ONCE PRN SC 07/22/25 16:30 Cancel Fentanyl/ Ropivacaine 200 ml @ 10 mls/hr UD EPI 07/22/25 18:00 07/24/25 17:59 Cancel Ibuprofen 600 mg Q6HP PRN PO 07/22/25 22:30 07/22/25 22:59 600 MG Acetaminophen 650 mg Q4HP PRN PO 07/22/25 22:30 Ondansetron HCl 4 mg Q4HPRN PRN PO 07/22/25 22:30 Acetaminophen/ Hydrocodone Bitart 1 tab Q6HPRN PRN PO 07/23/25 07:39 07/23/25 07:49 1 TAB laboratory and microbiology Laboratory Tests 07/22/25 07:25 Test 07/22/25 07:25 Range/Units Serum Glucose 74 74-106 mg/dL Objective O: AFVSS Chest: heart and lung sounds normal. Abd soft, non-tender, fundus firm, BS, no rebound or guarding, Ext Neg Homans, Non-tender, edema Lochia - minimal Labs Pending Assessment/Plan PPD#1 s/p , doing well GDMA1, delivered, BS normal D/C planning Plan discussed with: Patient Visit Coding OBGYN Date of Service: Jul 23, 2025 Billing Provider: MARCO A PALMER DO DATA TRANSCRIBER Common Visit Codes: [id number] INP/OBS CARE(HIGH) MARCO A PALMER DO Jul 23, 2025 09:07
[2025-07-23 11:18] LABS: Hematocrit 36.3 % (36.0-46.0); Hemoglobin 11.9 g/dL (12.2-16.2); Mean Corpuscular Hemoglobin 27.9 pg (28.0-32.0); Mean Corpuscular Volume 85.0 fL (80.0-100.0); Nucleated Red Blood Cells % 0.1 %
[2025-07-23 11:30] VITALS: BP 131/72; PULSE 89; RESP 17; TEMP 97.8; O2SAT 97
[2025-07-23 15:15] VITALS: BP 131/83; PULSE 90; RESP 18; TEMP 97.6; O2SAT 97
[2025-07-23 18:35] VITALS: BP 133/74; PULSE 82; RESP 16; TEMP 98.2; O2SAT 97
[2025-07-23] MEDS ORDERED: IBU600T PO (20:50)
--- NOTE | 2025-07-23 20:53 | DVHDS2 ---
Physician Discharge Progress N Final Diagnosis: Term , delivered GDMA1 Operations or Procedures: Operations or Procedures Induction of labor w/ Commentary: Commentary Normal labor and delivery Uneventful course Condition on Discharge: Stable Disposition: Home Discharge Instructions: Diet: Regular Activity: Light activity Activity comment: Pelvic rest x 6 weeks Follow Up/Referral: [address] uLi Medications: Ibuprofen prn eRx Follow Up Care: Discharge Statement: "Patient was advised to return to the ER or call 911 if any headaches, dizziness, shortness of breath, chest pain, abdominal pain, bleeding, fevers, or worsening of medical condition. Patient was counseled about treatment plan, medications, possible side effects, patientverbalized understanding. All questions were answered to the best of my ability. This discharge took greater then 30 minutes in planning, reviewing documentation, counseling the patient, and discussing with other team members." Visit Coding OBGYN Date of Service: Jul 23, 2025 Billing Provider: MARCO A PALMER DO WEB ARCHITECT Common Visit Codes: [id number] DISCH DAY <30MIN MARCO A PALMER DO Jul 23, 2025 20:53
[2025-07-23] MEDS: MEASLES, MUMPS & RUBELLA VAC(MMRII) 0.5ML SC ONE (21:42)
== END 2025-07-23 21:48 | disposition home or self-care (01) | DRG 807 ==
LOC: LDRP 07:00
PROVIDERS: ADMIT Obstetrics & Gynecology; ATTEND Obstetrics & Gynecology
PROC: 10E0XZZ Delivery of Products of Conception, External Approach (ICD-10-PCS; principal; 2025-07-22)
PROC: 3E0DXGC Introduction of Other Therapeutic Substance into Mouth and Pharynx, External Approach (ICD-10-PCS; 2025-07-22)
PROC: 00HU33Z Insertion of Infusion Device into Spinal Canal, Percutaneous Approach (ICD-10-PCS; 2025-07-22)
PROC: 3E0R3BZ Introduction of Anesthetic Agent into Spinal Canal, Percutaneous Approach (ICD-10-PCS; 2025-07-22)
DX: O24.420 Gestational diabetes mellitus in childbirth, diet controlled (principal); Z37.0 Single live birth; O48.0 Post-term pregnancy; Z3A.40 40 weeks gestation of pregnancy; Z23 Encounter for immunization
CPT/HCPCS: 36415; 59025; 59409; 62282; 80053; 80307; 81001; 81002; 82962; 85025; 85610; 85730; 86780; 86803; 86850; 86900; 86901; 94762; 96360; 96361; 96365; 96366; G0378; J2590